=== PATIENT | female | born 1965 | race Caucasian/White ===

== ENCOUNTER 2016-10-05 20:22 | Emergency (ER) | payer MEDICAID ==
[2016-10-05 20:29] VITALS: BP 139/87
== END 2016-10-05 22:43 | disposition left against medical advice (07) ==
LOC: ED 20:22
DX: Z53.21 Procedure and treatment not carried out due to patient leaving prior to being seen by health care provider (principal)

== ENCOUNTER 2017-03-08 11:59 | Emergency (ER) | payer SELFPAY ==
[2017-03-08 16:01] VITALS: BP 142/87
== END 2017-03-08 15:35 | disposition home or self-care (01) ==
LOC: ED 11:59
DX: M54.41 Lumbago with sciatica, right side (principal); M08.00 Unspecified juvenile rheumatoid arthritis of unspecified site; Z96.643 Presence of artificial hip joint, bilateral; Z96.612 Presence of left artificial shoulder joint; Z90.49 Acquired absence of other specified parts of digestive tract; Z90.89 Acquired absence of other organs; Z98.51 Tubal ligation status
CPT/HCPCS: J1170; Q0162

== ENCOUNTER 2017-04-04 08:48 | Emergency (ER) | payer SELFPAY ==
[2017-04-04 10:15] VITALS: BP 158/90
== END 2017-04-04 10:15 | disposition home or self-care (01) ==
LOC: ED 08:48
DX: M54.41 Lumbago with sciatica, right side (principal); R03.0 Elevated blood-pressure reading, without diagnosis of hypertension; M06.9 Rheumatoid arthritis, unspecified; Z96.643 Presence of artificial hip joint, bilateral; Z98.890 Other specified postprocedural states; Z88.6 Allergy status to analgesic agent
CPT/HCPCS: J3010; Q0162

== ENCOUNTER 2017-04-24 15:44 | Emergency (ER) | payer SELFPAY ==
[~2017-04-24] VITALS: Ht 152.4 cm; Wt 66.2 kg
[2017-04-24 17:19] VITALS: BP 133/90
== END 2017-04-24 17:19 | disposition home or self-care (01) ==
LOC: ED 15:44
DX: M54.31 Sciatica, right side (principal); M06.9 Rheumatoid arthritis, unspecified; Z96.653 Presence of artificial knee joint, bilateral; Z96.643 Presence of artificial hip joint, bilateral; Z88.6 Allergy status to analgesic agent
CPT/HCPCS: J1170; Q0162

== ENCOUNTER 2017-05-03 10:42 | Emergency (ER) | payer MEDICAID ==
[2017-05-03 10:50] VITALS: BP 159/102
== END 2017-05-03 11:40 | disposition home or self-care (01) ==
LOC: ED 10:42
DX: G89.29 Other chronic pain (principal); M25.511 Pain in right shoulder; M54.31 Sciatica, right side; M06.9 Rheumatoid arthritis, unspecified; R03.0 Elevated blood-pressure reading, without diagnosis of hypertension; Z88.8 Allergy status to other drugs, medicaments and biological substances; Z98.890 Other specified postprocedural states

== ENCOUNTER 2017-05-07 21:30 | Emergency (ER) | payer MEDICAID | END 2017-05-07 22:47 | disposition left against medical advice (07) | LOC: ED 21:30 | DX: Z53.21 Procedure and treatment not carried out due to patient leaving prior to being seen by health care provider (principal) ==

== ENCOUNTER 2017-05-24 04:01 | Emergency (ER) | payer MEDICAID ==
[~2017-05-24] VITALS: Ht 152.4 cm; Wt 68.5 kg
[2017-05-24 04:07] VITALS: BP 140/91
== END 2017-05-24 07:10 | disposition left against medical advice (07) ==
LOC: ED 04:01
DX: Z53.21 Procedure and treatment not carried out due to patient leaving prior to being seen by health care provider (principal)

== ENCOUNTER 2017-06-05 11:57 | Emergency (ER) | payer MEDICAID ==
[~2017-06-05] VITALS: Ht 152.4 cm; Wt 64.9 kg
[2017-06-05 15:37] VITALS: BP 129/84
== END 2017-06-05 15:37 | disposition home or self-care (01) ==
LOC: ED 11:57
DX: S13.4XXA Sprain of ligaments of cervical spine, initial encounter (principal); W19.XXXA Unspecified fall, initial encounter; Y93.89 Activity, other specified; Y92.89 Other specified places as the place of occurrence of the external cause; Y99.8 Other external cause status; Z88.6 Allergy status to analgesic agent
CPT/HCPCS: J3010; Q0162

== ENCOUNTER 2018-07-15 05:43 | Emergency (ER) | payer MEDICAID ==
[~2018-07-15] VITALS: Ht 152.4 cm; Wt 69.9 kg
[2018-07-15 05:53] VITALS: Ht 152.4 cm; Wt 69.9 kg
[2018-07-15 06:49] VITALS: BP 161/105
== END 2018-07-15 07:28 | disposition home or self-care (01) ==
LOC: ED 05:43
DX: M54.41 Lumbago with sciatica, right side (principal); Z88.6 Allergy status to analgesic agent; I10 Essential (primary) hypertension; Z98.890 Other specified postprocedural states
CPT/HCPCS: J7512

== ENCOUNTER 2018-08-03 06:20 | Emergency (ER) | payer MEDICAID ==
[~2018-08-03] VITALS: Ht 152.4 cm; Wt 68.0 kg
[2018-08-03 06:24] VITALS: Ht 152.4 cm; Wt 68.0 kg
[2018-08-03 07:22] VITALS: BP 163/109
== END 2018-08-03 07:22 | disposition home or self-care (01) ==
LOC: ED 06:20
DX: G89.29 Other chronic pain (principal); M54.5 Low back pain; I10 Essential (primary) hypertension; Z88.6 Allergy status to analgesic agent; Z98.890 Other specified postprocedural states; Z76.0 Encounter for issue of repeat prescription

== ENCOUNTER 2018-08-10 13:56 | Emergency (ER) | payer MEDICAID ==
[~2018-08-10] VITALS: Ht 152.4 cm; Wt 71.2 kg
[2018-08-10 14:05] VITALS: Ht 152.4 cm; Wt 71.2 kg
[2018-08-10 15:09] LABS: BASOPHIL % 0.4 % (0-2); RED CELL DISTRIBUTION WIDTH 14.4 % (11.5-14.5)
[2018-08-10 15:11] LABS: PLATELET COUNT 401 x10^3mcL (130-400)
[2018-08-10 15:19] LABS: CARBON DIOXIDE 30.5 mmol/L (21-32); CHLORIDE SERUM 103 mmol/L (98-107); CREATININE SERUM 0.5 mg/dL (0.6-1.0); GFR1 > 60 mL/min; GLUCOSE SERUM 107 mg/dL (74-106); POTASSIUM SERUM 3.9 mmol/L (3.5-5.1); SODIUM SERUM 140 mmol/L (136-145)
[2018-08-10 15:31] VITALS: BP 153/97
[2018-08-10 15:32] LABS: ALBUMIN 3.5 g/dL (3.4-5.0); ALKALINE PHOSPHATASE 122 U/L (46-116); ALT/SGPT 18 U/L (14-59); AMYLASE 65 U/L (25-115); AST/SGOT 14 U/L (15-37); BILIRUBIN TOTAL 0.24 mg/dL (0.20-1.00); CHOLESTEROL 200 mg/dL (<200); HDL CHOLESTEROL 44 mg/dL (40-60); LIPASE 96 IU/L (73-393); T4(THYROXINE) 6.7 ug/dL (4.7-13.3); TOTAL PROTEIN, SERUM 7.5 g/dL (6.4-8.2)
== END 2018-08-10 16:27 | disposition home or self-care (01) ==
LOC: ED 13:56
PROVIDERS: Emergency Medicine
DX: M54.16 Radiculopathy, lumbar region (principal); F11.20 Opioid dependence, uncomplicated; M06.9 Rheumatoid arthritis, unspecified; I10 Essential (primary) hypertension; E66.9 Obesity, unspecified; Z90.89 Acquired absence of other organs; Z90.49 Acquired absence of other specified parts of digestive tract; Z98.890 Other specified postprocedural states; Z88.1 Allergy status to other antibiotic agents; Z88.6 Allergy status to analgesic agent
CPT/HCPCS: 82962; 87804; J1100; J7030